=== PATIENT | male | born 1995 ===

== ENCOUNTER 2019-03-15 13:50 | Emergency (ER) | payer SELFPAY ==
[2019-03-15] MEDS ORDERED: Ibuprofen 200 MG TAB ONE (15:12)
[2019-03-15] MEDS ORDERED: Acetaminophen 500 MG TAB ONE (15:39)
[2019-03-15] MEDS ORDERED: Ondansetron ODT 4 MG TAB ONE (15:50)
== END 2019-03-15 17:31 | disposition home or self-care (01) ==
LOC: ERS 13:50
DX: J11.1 Influenza due to unidentified influenza virus with other respiratory manifestations (principal)
CPT/HCPCS: 87081; 87430; 87804; 99283; Q0162